=== PATIENT | male | born 1945 | race Caucasian/White ===

== ENCOUNTER 2023-05-23 06:01 | Day surgery (SDC) | payer MEDICARE, OTHER, SELFPAY ==
--- NOTE | 2023-04-24 09:14 | CM ---
Patient is scheduled for an elective R Reverse TSA on 05/23/23- he is a same day patient. Spoke with patient prior to surgery. Patient had a L Rev TSA (2016) and L TKR (2022) at . Reintroduced role of Orthopedic Navigator. Patient reports that he
lives with his in a two story home. There is one step to enter and patient has a first floor set up. Currently he requires assist with his socks but otherwise functions independently. He has a rolling walker, cane, shower seat, hip kit and lift
chair. He has had VN services through [facility]. PCP is Lyssa Tee.
Discussed orthopedic program and post surgical plans. Patient will return home when directed by surgeon. Reviewed MD follow up and transition to outpatient therapy. Patient is in agreement with tentative plan and states that his will be home
with him and can assist if needed.
Patient will complete online education.
Plan: Orthopedic Navigator will be involved in the care of patient after surgery and will reassess discharge needs at that time.
[2023-05-02 13:12] VITALS: BMI 36.7
[2023-05-02 14:17] LABS: Hemoglobin 10.9 g/dL (13.0-18.0); Mean Corpuscular Hgb 29.1 pg (27.0-31.0); Mean Platelet Volume 11.8 fL (7.4-10.4); Platelet Count 171 10^3/uL (130-400); Red Blood Cell Count 3.75 10^6/uL (4.70-6.10); Red Cell Dist. Width 17.6 % (11.5-14.5); White Blood Cell Count 6.7 10^3/uL (4.8-10.8)
[2023-05-02 14:32] LABS: ALT (SGPT) 16 U/L (0-50); AST (SGOT) 25 U/L (17-59); Albumin 4.4 g/dl (3.5-5.0); Alkaline Phosphatase 155 U/L (38-126); Blood Urea Nitrogen 59 mg/dl (9-20); Calcium 9.1 mg/dl (8.4-10.2); Carbon Dioxide 27 mmol/L (22-30); Chloride 105 mmol/L (98-107); Estimated Creatinine Clearance 32 ml/min; Glucose 104 mg/dl (70-99); Potassium 3.9 mmol/L (3.5-5.1); Sodium 138 mmol/L (135-145); Total Bilirubin 0.6 mg/dl (0.2-1.3); Total Protein 6.9 g/dl (6.3-8.2); eGFR 29.91
--- NOTE | 2023-05-02 15:16 | HPS.HSE ---
Family Physician
-
Family Physician: Lyssa Tee
Chief Complaint
-
Advanced primary osteoarthritis of the right shoulder. Same day surgery.
History of Present Illness
The patient is a 78 year old male presenting today for advanced primary osteoarthritis of the right shoulder. The patient reports significant right shoulder pain and instability secondary to this diagnosis. He notes that his current right
shoulder symptoms greatly interfere with his activities of daily living and overall impact his quality of life. He has tried and failed multiple conservative treatment measures in the past for his right shoulder symptoms. These conservative
treatment measures include activity modification, physician supervised therapeutic exercises, medical management with Tylenol, corticosteroid injections, and the application of ice and/or heat. A recent CT scan of the right shoulder demonstrated
moderate glenohumeral joint osteoarthritis. He was determined to be in need of a right reverse total shoulder arthroplasty. He denies any current complaints today such as chest pain, shortness of breath, nausea, vomiting, diarrhea, lightheadedness,
dizziness, cough, sore throat, or fever.
Medical History
Past Medical History
Past Medical History: Reports Other
Additional Past Medical History:
1. Osteoarthritis, status post left total shoulder arthroplasty, 2017, by Dr. Rico Briseno, left total hip arthroplasty, 2018, right total knee arthroplasty, 2019, and left total knee arthroplasty, 03/2022, by Dr. Phillip Garcia.
2. History of post-operative right knee hematoma while on Eliquis.
3. Hypertension.
4. Hyperlipidemia.
5. Coronary artery disease/inferior myocardial infarction, status post stent to mid RCA and posterolateral right distal branch 2004; residual mild stenosis on cardiac cath 2010, medically treated.
6. Paroxysmal atrial fibrillation, oral anticoagulation with Eliquis.
7. Chronic angina.
8. Peripheral arterial disease with claudication.
9. Congestive heart failure, preserved ejection fraction.
10. Thrombus of mid right femoral vein, resolved on peripheral vascular ultrasound 03/2021; on chronic Eliquis.
11. Chronic peripheral edema.
12. Obstructive sleep apnea, inconsistent with CPAP (setting 4).
13. Chronic kidney disease stage 3B-4.
14. Insulin-dependent diabetes with neuropathy, hemoglobin A1c 7.8.
15. GERD.
16. Colonic polyps.
17. History of GI bleed secondary to polyps, 2016, without recurrence.
18. Lumbar degenerative disc disease with stenosis.
19. BPH with LUTS.
20. Multifactorial anemia with iron deficiency component.
21. History of diabetic left foot abscess, status post debridement 2019.
22. Secondary hyperparathyroidism of renal origin.
23. History of Lyme disease.
24. Hearing impairment bilaterally.
25. Obesity, BMI 36.7.
26. Remote history of tobacco abuse.
Past Surgical History: Reports Other
Additional Past Surgical History:
1. Left total knee arthroplasty, 03/2022, by Dr. Phillip Garcia.
2. Right total knee arthroplasty, 2019, by Dr. Phillip Garcia.
3. Left total hip arthroplasty, 2018, by Dr. Phillip Garcia.
4. Left total shoulder arthroplasty, 2017, by Dr. Rico Briseno.
5. PCI with stents to mid RCA and posterolateral right distal branch.
6. Cardiac catheterization.
7. IVC filter and subsequent removal.
8. Left bunionectomy.
9. Vasectomy.
10. Bilateral cataract extraction.
11. Multiple epidural steroid injections.
Social History
Tobacco: Former Smoker (Former up to 3 pack per day cigarette smoker who quit tobacco altogether 40 years ago. )
Alcohol: None
Personal:
Living: Other (He lives with his in a 2 story home with a first floor main setup. )
Family History
Family History: Not pertinent
Allergies / Home Medications
Allergy/Medication List:
Home medications:
1. Eliquis 2.5 mg p.o. twice a day.
2. Amlodipine 2.5 mg p.o. daily.
3. Atorvastatin 40 mg p.o. every evening.
4. Calcitriol 0.25 mcg p.o. daily.
5. Ferrous sulfate 325 mg p.o. twice a day.
6. Finasteride 5 mg p.o. every evening.
7. Glipizide 2.5 mg p.o. twice a day.
8. Lantus 35 units subcutaneous at bedtime.
9. Isosorbide mononitrate 30 mg p.o. twice a day.
10. Ascorbic acid 1000 mg p.o. twice a day.
11. Cholecalciferol 1000 mcg p.o. daily.
12. Omeprazole 20 mg p.o. daily.
13. Lyrica 75 mg p.o. three times a day.
14. Sodium bicarbonate 1300 mg p.o. twice a day.
15. Tamsulosin 0.4 mg p.o. every evening.
16. Cyanocobalamin 1000 mcg p.o. daily.
17. Furosemide 40 mg p.o. daily as needed.
18. Probiotic 50,000 mmu cell p.o. daily.
19. Multivitamin 1 tablet p.o. daily.
Allergies: No known allergies.
Review of Systems
-
A 12 point ROS was completed and negative except as noted: Yes
Physical Exam
Vital Signs
Blood pressure 120/62. Heart rate 62. Respirations 18. Pulse ox 9&% on room air.
Height 5 feet, 7 inches. Weight 106.2 kg. BMI 36.7.
Physical Exam
General: Well Developed, Well Nourished and No Apparent Distress
HEENT: NormoCephalic, Moist mucous membranes, Atraumatic and PERRLA
Respiratory: Clear
Cardiac: Regular Rhythm
GI: Soft, Non Tender, Non Distended and Other (Obese. )
Musculoskeletal: Other (Right shoulder: elevation to 90 degrees. External rotation to -10 degrees. Internal rotation to hip pocket. Strength with elevation is 3/5. Internal and external rotation is 4/5. Left shoulder: good range of motion and
strength. )
Skin: Warm and Dry
Neuro: AO x 3 and Nonfocal/grossly intact
Laboratory Results
-
05/02/23 12:56
05/02/23 12:56
Laboratory Results
Total Bilirubin 0.6 mg/dl (0.2-1.3) 05/02/23 12:56
AST 25 U/L (17-59) 05/02/23 12:56
ALT 16 U/L (0-50) 05/02/23 12:56
Alkaline Phosphatase 155 U/L (38-126) H 05/02/23 12:56
Type and screen O positive.
Hemoglobin A1c 7.8.
MRSA nasal screen negative.
EKG provided by Cardiology.
Echocardiogram 07/21/2022: Normal biventricular size and systolic function without regional wall motion abnormality. Moderate concentric left ventricular hypertrophy. Trace mitral and tricuspid regurgitation. Trileaflet, sclerotic aortic valve
without stenosis or significant regurgitation. No evidence of pulmonary hypertension. Small pericardial effusion.
Impression/Plan
-
CLEARANCES:
1. Primary medical, Dr. Lyssa Tee, cleared at higher risk.
Primary medical phone number: [phone].
2. Cardiology, Dr. James Jason, cleared.
3. Dental cleared.
IMPRESSION/PLAN:
1. Advanced primary osteoarthritis of the right shoulder in need of a right reverse total shoulder arthroplasty by Dr. Rico Briseno on 05/23/2023. The benefits and risks of the procedure have been explained to the patient. The patient understands
these risks and wishes to proceed.
2. DVT prophylaxis: Full dose Aspirin with a transition to Eliquis. As stated previously, the patient did experience a right knee hematoma after his right total knee arthroplasty in 2019 due to resuming his home Eliquis too quickly. He will start
Aspirin 325 mg p.o. daily upon discharge for 1 week post-operatively. As long as he is hemodynamically stable, he may stop Aspirin and resume his home Eliquis afterwards. This medication regimen worked well for DVT prophylaxis after his prior left
total knee arthroplasty in March 2022. The patient will also utilize plasma flow devices for further blood clot prevention.
3. Pain management: The patient has stable comorbidities as referenced by his primary care physician and mechanical equipment test engineer and is medically optimized to proceed as a Same-Day Surgery candidate on 05/23/2023. In preparation for her procedure, he has
already been prescribed Oxycodone 5 mg, 1-2 tablets p.o. every 6 hours as needed for moderate to severe post-operative pain. He will also use Acetaminophen 1000 mg p.o. every 6 hours for pain control. NSAIDs will be avoided due to his history of
chronic kidney disease stage 3B-4. Steroids will also be avoided due to his insulin-dependent diabetes.
Patient's home phone number: [phone].
Patient's cell phone number: [phone].
Patient's contact (Lorraine Krishna - Spouse): [phone].
[2023-05-02 17:03] VITALS: BMI 36.7
[2023-05-03 09:29] LABS: Glycohemoglobin (HgbA1c) 7.8 % (4.0-5.6)
[2023-05-23] VITALS (10 sets, daily range): BP systolic 117–153; BP diastolic 51–73; BMI 36.7
[2023-05-23 06:18] LABS: Glucose - Point of Care 97 mg/dl (70-99)
[2023-05-23] MEDS: CELEBREX 200 MG PO (06:47)
[2023-05-23] MEDS: NORMOSOL-R 1000 IV (06:47)
[2023-05-23] MEDS: TYLENOL 1000 MG PO (06:47)
[2023-05-23 09:17] LABS: Glucose - Point of Care 136 mg/dl (70-99)
[2023-05-23] MEDS: ANCEF 5 IV (11:46)
== END 2023-05-23 11:58 | disposition home or self-care (01) ==
LOC: SDS 06:01
PROVIDERS: ATTENDING PHYSICIAN Specialist; FAMILY PHYSICIAN Nurse Practitioner Family; OTHER PHYSICIAN Internal Medicine Cardiovascular Disease; OTHER PHYSICIAN Physical Medicine & Rehabilitation; OTHER PHYSICIAN Physician Assistant
DX: M19.011 Primary osteoarthritis, right shoulder (principal)
CPT/HCPCS: 23472; 36415; 73020; 80053; 82962; 83036; 85027; 86850; 86900; 86901; 87070; 93005; C1713; C1776

== ENCOUNTER 2023-07-18 08:54 | Outpatient (RCR) | payer MEDICARE, OTHER, SELFPAY | END 2023-07-18 23:59 | disposition home or self-care (01) | LOC: RPT 08:54 | PROVIDERS: ATTENDING PHYSICIAN Physician Assistant; FAMILY PHYSICIAN Family Medicine | DX: Z47.1 Aftercare following joint replacement surgery (principal); M62.81 Muscle weakness (generalized); M25.511 Pain in right shoulder; Z96.611 Presence of right artificial shoulder joint | CPT/HCPCS: 97010; 97110; 97140; 97162 ==

== ENCOUNTER 2023-08-17 08:52 | Outpatient (RCR) | payer MEDICARE, OTHER, SELFPAY | END 2023-08-17 23:59 | disposition home or self-care (01) | LOC: RPT 08:52 | PROVIDERS: ATTENDING PHYSICIAN Physician Assistant; FAMILY PHYSICIAN Family Medicine | DX: Z47.1 Aftercare following joint replacement surgery (principal); M62.81 Muscle weakness (generalized); M25.511 Pain in right shoulder; Z96.611 Presence of right artificial shoulder joint; Z73.6 Limitation of activities due to disability | CPT/HCPCS: 97010; 97110; 97140 ==

== ENCOUNTER 2023-09-12 14:06 | Outpatient (RCR) | payer MEDICARE, OTHER, SELFPAY | END 2023-09-14 11:55 | disposition home or self-care (01) | LOC: RPT 14:06 | PROVIDERS: ATTENDING PHYSICIAN Physician Assistant; FAMILY PHYSICIAN Family Medicine | DX: Z47.1 Aftercare following joint replacement surgery (principal); M62.81 Muscle weakness (generalized); Z96.611 Presence of right artificial shoulder joint; M25.511 Pain in right shoulder | CPT/HCPCS: 97010; 97110; 97140 ==

== ENCOUNTER → 2024-12-10 07:03 | Outpatient (REF) | payer MEDICARE, OTHER, SELFPAY | LOC: HWRCS 07:03 | PROVIDERS: ATTENDING PHYSICIAN Internal Medicine Cardiovascular Disease | DX: I50.9 Heart failure, unspecified (principal); I25.10 Atherosclerotic heart disease of native coronary artery without angina pectoris | CPT/HCPCS: 78452; 93017; A9500; J2785 ==

== ENCOUNTER → 2025-01-21 09:43 | Outpatient (REF) | payer MEDICARE, OTHER, SELFPAY | LOC: RSP 09:43 | PROVIDERS: ATTENDING PHYSICIAN Physician Assistant Medical; FAMILY PHYSICIAN Nurse Practitioner Family | DX: R06.00 Dyspnea, unspecified (principal) | CPT/HCPCS: 88738; 94010; 94727; 94729 ==

== ENCOUNTER → 2025-02-05 13:37 | Outpatient (REF) | payer MEDICARE, OTHER, SELFPAY | LOC: HWRAD 13:37 | PROVIDERS: ATTENDING PHYSICIAN Internal Medicine Cardiovascular Disease; FAMILY PHYSICIAN Nurse Practitioner Family | DX: I26.99 Other pulmonary embolism without acute cor pulmonale (principal); J98.4 Other disorders of lung | CPT/HCPCS: 71250 ==